=== PATIENT | female | born 1990 | race Caucasian/White ===

== ENCOUNTER 2023-06-08 13:23 | Day surgery (SDC) | payer OTHER ==
[2023-06-08 14:02] VITALS: BMI 22.8
[2023-06-08] MEDS ORDERED: hydrALAZINE 20 MG/ML VIAL SLOW IVP PRN (14:30)
[2023-06-08 15:30] LABS: Bilirubin Neg (Negative); Blood, Urine Negative (Negative); Clarity Clear (Clear); Glucose, Urine (Dipstick) Normal (Negative); Ketone, Urine Negative (Negative); Leukocyte Negative (Negative); Nitrite Negative (Negative); Protein, Urine (Dipstick) Negative (Neg-Trace); Urobilinogen Normal mg/dL (Less than 2)
[2023-06-08] MEDS ORDERED: Lactated Ringer's 1,000 ML IV SCH (15:30)
[2023-06-08 16:11] LABS: Bacteria/HPF Rare-Few HPF (None Seen); CAUTI Indications for Culture Pelvic or flank pain; RBC/HPF 0-3 HPF (0-3); Squamous Epithelial 0-3 HPF (0-3); WBC/HPF 0-3 HPF (0-3)
[2023-06-08 16:12] LABS: Urine Culture Reflex No No
[2023-06-08 16:51] LABS: FFN Internal QC Analyzer PASS (PASS); FFN Internal QC Cassette PASS (PASS); Fetal Fibronectin Negative (Negative)
== END 2023-06-08 19:14 | disposition home or self-care (01) ==
LOC: CSHLD/OP 13:23
PROVIDERS: ATTEND Obstetrics & Gynecology
DX: O99.891 Other specified diseases and conditions complicating pregnancy (principal); R10.31 Right lower quadrant pain; N13.2 Hydronephrosis with renal and ureteral calculous obstruction; O99.323 Drug use complicating pregnancy, third trimester; F11.20 Opioid dependence, uncomplicated; O44.23 Partial placenta previa NOS or without hemorrhage, third trimester; Z79.899 Other long term (current) drug therapy; Z3A.28 28 weeks gestation of pregnancy
CPT/HCPCS: 76770; 76815; 81001; 82731; 96360; 96361; 99284

== ENCOUNTER 2023-07-05 15:17 | Inpatient (IN) | payer OTHER ==
[2023-07-05] MEDS ORDERED: hydrALAZINE 20 MG/ML VIAL SLOW IVP PRN ×2 (15:21→15:31)
[2023-07-05] MEDS ORDERED: Ondansetron PF 4 MG/2 ML Vial IVP PRN ×2 (15:31→17:41)
[2023-07-05] MEDS ORDERED: Promethazine HCl 25 MG/ML VIAL IM PRN (15:31)
[2023-07-05] MEDS ORDERED: Oxytocin 30 units/NS 500 ML 500 ML IV SCH (15:45)
[2023-07-05 16:00] LABS: #Eosinphils 0.1 10x3/uL (0.0-0.5); #Monocytes 1.1 10x3/uL (0.0-1.1); #Neutrophils 12.2 10x3/uL (1.5-8.4); %Basophils 0.2 % (0.0-2.0); %Eosinophils 0.9 % (0.0-6.0); %Lymphocytes 16.2 % (18.0-47.0); %Monocytes 6.7 % (0.0-10.0); %Neutrophils 74.8 % (40.0-75.0); Hematocrit 33.3 % (34.9-44.5); Hemoglobin 11.8 g/dL (12.0-15.5); Mean Corpuscular HGB CONC 35.4 g/dL (32.0-36.0); Mean Corpuscular Hemoglobin 31.6 pg (27.0-33.0); Mean Corpuscular Volume 89.3 fl (81.6-98.3); Mean Platelet Volume 10.4 fl (7.4-10.4); Platelet Count 294 10x3/uL (150-450); RBC Distribution Width 12.7 % (11.5-14.5); Red Blood Cell (RBC) Count 3.73 10x6/uL (3.90-5.03); White Blood Cell (WBC) Count 16.3 10x3/uL (3.5-10.5)
[2023-07-05 16:20] LABS: ALT (SGPT) 8 U/L (8-55); AST (SGOT) 15 U/L (5-34); Albumin 3.8 g/dL (3.5-5.0); Alkaline Phosphatase 120 U/L (40-110); Anion Gap 16 mmol/L (10-20); BUN (Urea Nitrogen) 7 mg/dL (7.0-18.7); Bilirubin, Total 0.5 mg/dL (0.2-1.2); Calc. Creatinine Clearance 0 mL/min (70-130); Calcium 9.2 mg/dL (7.8-10.44); Carbon Dioxide 20 mmol/L (22-29); Chloride 106 mmol/L (98-107); Estimated GFR 120; Globulin 2.6 g/dL (2.4-3.5); Glucose 76 mg/dL (70-105); Potassium 3.8 mmol/L (3.5-5.1); Protein, Total 6.4 g/dL (6.0-8.3); Sodium 138 mmol/L (136-145)
[2023-07-05 16:24] LABS: Fetal Membranes Rupture RUPTURE DETECTED (No Rupture)
[2023-07-05 16:37] LABS: Amphetamine Not Detected (NotDetected); Barbiturates Screen Not Detected (NotDetected); Benzodiazepine Screen Not Detected (NotDetected); Cocaine Metabolite Screen Not Detected (NotDetected); Methadone Not Detected (NotDetected); Methamphetamine Not Detected (NotDetected); Opiate Screen Not Detected (NotDetected); Oxycodone Screen Not Detected (NotDetected); Phencyclidine (PCP) Not Detected (NotDetected); THC/Cannabinoid Screen Not Detected (NotDetected); Tricyclic Screen Not Detected (NotDetected)
[2023-07-05 16:38] LABS: Syphilis Antibody Nonreactive (Nonreactive); Syphilis Antibody Index 0.03 S/CO (<1.00 Non-Reactive)
[2023-07-05 16:39] LABS: HBSAg Index 0.15 S/CO (0-0.99); Hep B Surf Ag - L&D Non-Reactive S/CO (NonReactive)
[2023-07-05 16:54] LABS: INR-International Normal Ratio 0.9; PTT 29.3 sec (22.0-33.0); Prothrombin Time 10.2 sec (9.5-12.1)
[2023-07-05] MEDS ORDERED: Betamet Acet/Betamet Na Ph 30 MG/5 ML VIAL ONE (17:39)
[2023-07-05] MEDS ORDERED: Magnesium Sulfate 20 gm/500 ml 20 GM/500 ML BAG ONE (17:40)
[2023-07-05] MEDS ORDERED: Magnesium Sulfate 20 gm/500 ml 20 GM/500 ML BAG IVPB SCH ×2 (17:45→19:02)
[2023-07-05] MEDS ORDERED: Betamet Acet/Betamet Na Ph 30 MG/5 ML VIAL IM SCH (18:00)
[2023-07-05 19:35] VITALS: BMI 23.3
[2023-07-05 21:37] LABS: Fetal Membranes Rupture RUPTURE DETECTED (No Rupture)
[2023-07-05] MEDS ORDERED: Acetaminophen 500 MG TAB PO PRN ×2 (22:23→22:29)
[2023-07-06] MEDS ORDERED: CEFAZOLIN 2 GM VIAL ONE (00:49)
[2023-07-06] MEDS ORDERED: Methylergonovine 0.2 MG/ML VIAL ONE (01:03)
[2023-07-06] MEDS ORDERED: Fentanyl 250 MCG/5 ML VIAL ONE (01:03)
[2023-07-06] MEDS ORDERED: Tranexamic Acid 1,000 MG/10 ML VIAL ONE (01:08)
[2023-07-06] MEDS ORDERED: PHENYLEPHRINE-NS 100 MCG/ML 10 ML SYRINGE ONE (01:09)
[2023-07-06 01:46] LABS: Analyzer IN Cardio CS NICU; Critical Notified By: Udy, RRT; RapidComm Collect By L&D
[2023-07-06 01:47] LABS: Analyzer IN Cardio CS NICU; Critical Notified By: Udy, RRT; RapidComm Collect By L&D; pH (Cord, venous) 7.385 (7.250-7.350)
[2023-07-06] MEDS ORDERED: SUGAMMADEX SODIUM 200 MG/2 ML VIAL ONE (01:48)
[2023-07-06 02:02] LABS: Hematocrit 30.6 % (34.9-44.5); Hemoglobin 10.3 g/dL (12.0-15.5); Platelet Count 273 10x3/uL (150-450)
[2023-07-06 02:16] LABS: ALT (SGPT) Less than 7 U/L (8-55); AST (SGOT) 12 U/L (5-34); Albumin 2.4 g/dL (3.5-5.0); Alkaline Phosphatase 78 U/L (40-110); Anion Gap 14 mmol/L (10-20); BUN (Urea Nitrogen) 7 mg/dL (7.0-18.7); Bilirubin, Total 0.3 mg/dL (0.2-1.2); Calc. Creatinine Clearance 129 mL/min (70-130); Calcium 6.5 mg/dL (7.8-10.44); Carbon Dioxide 15 mmol/L (22-29); Chloride 108 mmol/L (98-107); Estimated GFR 124; Globulin 1.7 g/dL (2.4-3.5); Glucose 201 mg/dL (70-105); Potassium 4.5 mmol/L (3.5-5.1); Protein, Total 4.1 g/dL (6.0-8.3); Sodium 132 mmol/L (136-145)
[2023-07-06] MEDS ORDERED: Misoprostol 200 MCG TAB PR PRN (02:23)
[2023-07-06] MEDS ORDERED: hydrALAZINE 20 MG/ML VIAL SLOW IVP PRN (02:23)
[2023-07-06] MEDS ORDERED: Boostrix 0.5 ML (Tdap) VIAL (>/=7 yrs of age) IM ONE (02:23)
[2023-07-06] MEDS ORDERED: Lanolin Ointment 7 GM TUBE TOP PRN (02:23)
[2023-07-06] MEDS ORDERED: Methylergonovine 0.2 MG/ML VIAL IM PRN (02:23)
[2023-07-06] MEDS ORDERED: Promethazine HCl 25 MG/ML VIAL IM PRN ×2 (02:27→02:28)
[2023-07-06] MEDS ORDERED: Ondansetron PF 4 MG/2 ML Vial IVP PRN ×3 (02:27→02:28)
[2023-07-06] MEDS ORDERED: Naloxone HCl 0.4 mg/ml Vial IV PRN ×2 (02:27→02:28)
[2023-07-06] MEDS ORDERED: diphenhydrAMINE 50 MG/ML VIAL IM PRN ×2 (02:27→02:28)
[2023-07-06] MEDS ORDERED: diphenhydrAMINE 25 MG CAP PO PRN ×2 (02:27→02:28)
[2023-07-06] MEDS ORDERED: diphenhydrAMINE 50 MG/ML VIAL IVP PRN ×2 (02:27→02:28)
[2023-07-06] MEDS ORDERED: fentaNYL 50 mcg/mL 1 mL Vial SLOW IVP PRN (02:27)
[2023-07-06] MEDS ORDERED: Meperidine HCl/PF 25 MG/ML VIAL SLOW IVP PRN (02:27)
[2023-07-06] MEDS ORDERED: FENTANYL 500 MCG/10 ML VIAL 2,000 MCG in Sodium Chloride 0.9% 60 ML IV PRN (02:28)
[2023-07-06] MEDS ORDERED: Ketorolac Tromethamine 30 MG/ML VIAL IVP SCH (02:30)
[2023-07-06] MEDS ORDERED: Communication Order-Pharmacy FS SCH ×2 (02:30)
[2023-07-06] MEDS ORDERED: Oxytocin 30 units/NS 500 ML 500 ML IV SCH (02:30)
[2023-07-06 02:31] LABS: D-Dimer Test 2.03 mg/L FEU (0.19-0.50); PTT 30.1 sec (22.0-33.0); Prothrombin Time 10.5 sec (9.5-12.1)
[2023-07-06] MEDS ORDERED: Lorazepam 2 MG/ML VIAL SLOW IVP PRN (02:32)
[2023-07-06] MEDS ORDERED: CALCIUM GLUC 1 GM/NS 50 ML 1 GM in Premix 1 BAG IVPB SCH (03:00)
[2023-07-06] MEDS: FENTANYL 500 MCG/10 ML VIAL 1,000 MCG in Sodium Chloride 0.9% 30 ML IV PRN ×2 (03:08→11:26)
[2023-07-06 05:33] LABS: Hematocrit 31.8 % (34.9-44.5); Hemoglobin 11.3 g/dL (12.0-15.5); Mean Corpuscular HGB CONC 35.5 g/dL (32.0-36.0); Mean Corpuscular Hemoglobin 30.5 pg (27.0-33.0); Mean Corpuscular Volume 85.7 fl (81.6-98.3); Mean Platelet Volume 10.4 fl (7.4-10.4); Platelet Count 250 10x3/uL (150-450); RBC Distribution Width 14.3 % (11.5-14.5); Red Blood Cell (RBC) Count 3.71 10x6/uL (3.90-5.03); White Blood Cell (WBC) Count 39.2 10x3/uL (3.5-10.5)
[2023-07-06 05:41] LABS: ALT (SGPT) 10 U/L (8-55); AST (SGOT) 22 U/L (5-34); Albumin 2.7 g/dL (3.5-5.0); Alkaline Phosphatase 85 U/L (40-110); Anion Gap 14 mmol/L (10-20); BUN (Urea Nitrogen) 9 mg/dL (7.0-18.7); Bilirubin, Total 1.2 mg/dL (0.2-1.2); Calc. Creatinine Clearance 127 mL/min (70-130); Calcium 7.2 mg/dL (7.8-10.44); Carbon Dioxide 14 mmol/L (22-29); Chloride 107 mmol/L (98-107); Estimated GFR 123; Globulin 1.8 g/dL (2.4-3.5); Glucose 185 mg/dL (70-105); Potassium 4.2 mmol/L (3.5-5.1); Protein, Total 4.5 g/dL (6.0-8.3); Sodium 131 mmol/L (136-145)
[2023-07-06 06:24] LABS: MDiff Complete? YES
[2023-07-06 06:28] LABS: Band 17 % (5-11); Lymphocytes 5 % (21-51); Monocytes 6 % (0-10); Neutrophil 72 % (42-75)
[2023-07-06 06:30] LABS: Burr Cells SLIGHT = 2-5 cells (100X) (0-1/hpf); Ovalocytes SLIGHT = 2-5 cells (100X) (0-1/hpf); Platelet Adequacy Comment Appears Adequate
[2023-07-06] MEDS ORDERED: Benzocaine/Menthol 1 LOZ LOZ PO PRN (07:13)
[2023-07-06 08:16] LABS: Hematocrit 27.5 % (34.9-44.5); Hemoglobin 9.9 g/dL (12.0-15.5)
[2023-07-06] MEDS: Acetaminophen 500 MG TAB PO SCH ×4 (09:37→19:48)
[2023-07-06] MEDS: Prenatal Vitamin 1 TAB PO SCH (09:37)
[2023-07-06] MEDS: Lactated Ringer's 1,000 ML IV SCH ×3 (09:58→19:49)
[2023-07-06] MEDS: Escitalopram Oxalate 10 mg Tablet PO SCH (09:58)
[2023-07-06] MEDS: Ferrous Sulfate 325 MG TAB PO SCH ×2 (10:09→20:49)
[2023-07-06] MEDS ORDERED: Ketorolac Tromethamine 30 MG/ML VIAL IVP PRN (11:07)
[2023-07-06] MEDS: Ketorolac Tromethamine 30 MG/ML VIAL IVP SCH ×2 (14:39→17:26)
[2023-07-06] MEDS: Simethicone Chewable 80 MG TAB PO PRN (17:29)
[2023-07-07] MEDS: Lactated Ringer's 1,000 ML IV SCH ×3 (01:10→16:52)
[2023-07-07] MEDS: Ketorolac Tromethamine 30 MG/ML VIAL IVP SCH ×4 (01:10→18:27)
[2023-07-07] MEDS: FENTANYL 500 MCG/10 ML VIAL 1,000 MCG in Sodium Chloride 0.9% 30 ML IV PRN ×2 (02:14→17:21)
[2023-07-07] MEDS: Acetaminophen 500 MG TAB PO SCH ×3 (02:59→18:27)
[2023-07-07] MEDS: Escitalopram Oxalate 10 mg Tablet PO SCH (09:46)
[2023-07-07] MEDS: Simethicone Chewable 80 MG TAB PO PRN ×2 (09:47→17:22)
[2023-07-07] MEDS: Prenatal Vitamin 1 TAB PO SCH (09:47)
[2023-07-07] MEDS: Ferrous Sulfate 325 MG TAB PO SCH (09:47)
[2023-07-07] MEDS ORDERED: Polyethylene Glycol 3350 17 GM Packet PO PRN (10:39)
[2023-07-08] MEDS: Ferrous Sulfate 325 MG TAB PO SCH ×3 (00:17→22:54)
[2023-07-08] MEDS: Ketorolac Tromethamine 30 MG/ML VIAL IVP SCH ×4 (00:18→18:29)
[2023-07-08 04:35] LABS: Hematocrit 19.9 % (34.9-44.5); Hemoglobin 6.8 g/dL (12.0-15.5); Mean Corpuscular HGB CONC 34.2 g/dL (32.0-36.0); Mean Corpuscular Hemoglobin 30.1 pg (27.0-33.0); Mean Corpuscular Volume 88.1 fl (81.6-98.3); Mean Platelet Volume 10.4 fl (7.4-10.4); Platelet Count 199 10x3/uL (150-450); RBC Distribution Width 15.6 % (11.5-14.5); Red Blood Cell (RBC) Count 2.26 10x6/uL (3.90-5.03); White Blood Cell (WBC) Count 16.3 10x3/uL (3.5-10.5)
[2023-07-08] MEDS: Lactated Ringer's 1,000 ML IV SCH ×2 (07:37→09:43)
[2023-07-08] MEDS ORDERED: Acetaminophen 500 MG TAB PO SCH (08:00)
[2023-07-08] MEDS: Escitalopram Oxalate 10 mg Tablet PO SCH (09:42)
[2023-07-08] MEDS: Acetaminophen 500 MG TAB PO SCH (09:44)
[2023-07-08] MEDS: Prenatal Vitamin 1 TAB PO SCH (09:56)
[2023-07-08] MEDS: Simethicone Chewable 80 MG TAB PO PRN ×2 (09:56→13:44)
[2023-07-08] MEDS: Famotidine 20 MG TAB PO SCH ×2 (09:57→22:54)
[2023-07-08] MEDS: HYDROcodone/Acetaminophen 5/325 mg Tablet PO PRN ×4 (11:12→22:55)
[2023-07-08] MEDS: Acetaminophen 325 MG TAB PO SCH (15:59)
[2023-07-08] MEDS: Lorazepam 0.5 MG TAB PO PRN (16:00)
[2023-07-09] MEDS: Acetaminophen 325 MG TAB PO SCH ×4 (02:15→22:58)
[2023-07-09] MEDS: Ketorolac Tromethamine 30 MG/ML VIAL IVP SCH ×2 (02:16→19:22)
[2023-07-09] MEDS: Lorazepam 0.5 MG TAB PO PRN ×2 (03:50→22:58)
[2023-07-09] MEDS: HYDROcodone/Acetaminophen 5/325 mg Tablet PO PRN ×3 (03:51→19:47)
[2023-07-09 04:26] LABS: Hematocrit 22.5 % (34.9-44.5); Hemoglobin 7.7 g/dL (12.0-15.5); Mean Corpuscular HGB CONC 34.2 g/dL (32.0-36.0); Mean Corpuscular Hemoglobin 29.8 pg (27.0-33.0); Mean Corpuscular Volume 87.2 fl (81.6-98.3); Mean Platelet Volume 9.9 fl (7.4-10.4); Platelet Count 220 10x3/uL (150-450); RBC Distribution Width 15.3 % (11.5-14.5); Red Blood Cell (RBC) Count 2.58 10x6/uL (3.90-5.03); White Blood Cell (WBC) Count 14.1 10x3/uL (3.5-10.5)
[2023-07-09] MEDS: Ibuprofen 800 MG TAB PO PRN ×2 (08:35→18:50)
[2023-07-09] MEDS: Escitalopram Oxalate 10 mg Tablet PO SCH ×2 (08:35→09:05)
[2023-07-09] MEDS: Famotidine 20 MG TAB PO SCH ×3 (08:35→19:47)
[2023-07-09] MEDS: Ferrous Sulfate 325 MG TAB PO SCH ×2 (08:35→19:47)
[2023-07-09] MEDS: Prenatal Vitamin 1 TAB PO SCH (08:35)
[2023-07-09 14:49] LABS: SARS-CoV-2 NAA Rapid Test Not Detected (NotDetected)
[2023-07-10] MEDS: Ibuprofen 800 MG TAB PO PRN ×2 (04:34→10:51)
[2023-07-10] MEDS: Simethicone Chewable 80 MG TAB PO PRN (05:09)
[2023-07-10] MEDS: Acetaminophen 325 MG TAB PO SCH (08:14)
[2023-07-10] MEDS: Prenatal Vitamin 1 TAB PO SCH (08:15)
[2023-07-10 08:39] VITALS: BP 108/65; TEMP 98.4
[2023-07-10] MEDS: HYDROcodone/Acetaminophen 5/325 mg Tablet PO PRN (09:21)
[2023-07-10] MEDS: Escitalopram Oxalate 10 mg Tablet PO SCH (10:36)
[2023-07-10] MEDS: Famotidine 20 MG TAB PO SCH (10:36)
[2023-07-10] MEDS: Ferrous Sulfate 325 MG TAB PO SCH (10:50)
== END 2023-07-10 14:10 | disposition home or self-care (01) | DRG 787 ==
LOC: CSHLD/OP 15:17 → CSHLD 17:40 → CSHPP 07-06 06:45
PROVIDERS: ADMIT Student in an Organized Health Care Education/Training Program; ATTEND Student in an Organized Health Care Education/Training Program
PROC: 10D00Z1 Extraction of Products of Conception, Low, Open Approach (ICD-10-PCS; principal; 2023-07-06)
PROC: 30233N1 Transfusion of Nonautologous Red Blood Cells into Peripheral Vein, Percutaneous Approach (ICD-10-PCS; 2023-07-06)
DX: O44.13 Complete placenta previa with hemorrhage, third trimester (principal); D62 Acute posthemorrhagic anemia; O72.1 Other immediate postpartum hemorrhage; Z3A.32 32 weeks gestation of pregnancy; Z37.0 Single live birth; O69.81X0 Labor and delivery complicated by cord around neck, without compression, not applicable or unspecified; E83.51 Hypocalcemia; O99.285 Endocrine, nutritional and metabolic diseases complicating the puerperium; O90.81 Anemia of the puerperium; O45.93 Premature separation of placenta, unspecified, third trimester; Z11.52 Encounter for screening for COVID-19
CPT/HCPCS: 36415; 36430; 51702; 74018; 76815; 80053; 80306; 82805; 84112; 85014; 85018; 85025; 85027; 85049; 85300; 85362; 85379; 85384; 85610; 85730; 86780; 86850; 86900; 86901; 87340; 87480; 87510; 87660; 88307; 90715; 99285; J0613; J1885; J2175; J2210; J2405; J2590; J3010; J3475; J3490; J7120; P9016